=== PATIENT | male | born 1990 | race Caucasian/White ===

== ENCOUNTER 2019-04-23 18:27 | Emergency (ER) | payer MEDICAID, OTHER ==
[~2019-04-23] VITALS: Ht 177.8 cm; Wt 73.2 kg
[~2019-04-23 18:27] MED LIST: NO HOME MEDS
[2019-04-23 18:35] VITALS: BP 134/90
== END 2019-04-23 19:45 | disposition home or self-care (01) ==
LOC: ER 18:28
DX: F10.10 Alcohol abuse, uncomplicated (principal); F17.200 Nicotine dependence, unspecified, uncomplicated; F12.90 Cannabis use, unspecified, uncomplicated; F15.90 Other stimulant use, unspecified, uncomplicated; H91.90 Unspecified hearing loss, unspecified ear; Z98.890 Other specified postprocedural states; Y90.9 Presence of alcohol in blood, level not specified
CPT/HCPCS: 96361; 96372; 96374; 96375; 99281; 99284; J7030